=== PATIENT | male | born 1955 | race Caucasian/White ===

== ENCOUNTER → 2017-11-30 06:42 | Outpatient (CLI) | payer OTHER | END | disposition home or self-care (01) | LOC: LAB 06:42 | DX: N40.0 Benign prostatic hyperplasia without lower urinary tract symptoms (principal); R35.0 Frequency of micturition; R30.0 Dysuria ==

== ENCOUNTER 2018-12-20 10:11 | Outpatient (CLI) | payer OTHER | END 2018-12-20 10:14 | disposition home or self-care (01) | LOC: SONOGRAMA 10:11 → MAMO-SONO 10:15 | DX: M65.832 Other synovitis and tenosynovitis, left forearm (principal); M19.042 Primary osteoarthritis, left hand ==

== ENCOUNTER 2019-02-11 07:19 | Outpatient (CLI) | payer OTHER | END 2019-02-11 07:20 | disposition home or self-care (01) | LOC: SONOGRAMA 07:19 → MAMO-SONO 08:45 | DX: R10.84 Generalized abdominal pain (principal) ==

== ENCOUNTER 2019-03-04 10:49 | Outpatient (CLI) | payer OTHER | END 2019-03-04 10:50 | disposition home or self-care (01) | LOC: RAD 10:49 | DX: J18.0 Bronchopneumonia, unspecified organism (principal) ==

== ENCOUNTER → 2019-06-13 | Outpatient (CLI) | payer OTHER | END | disposition home or self-care (01) | LOC: TOM 07:25 | DX: R10.84 Generalized abdominal pain (principal) ==

== ENCOUNTER → 2022-10-25 | Outpatient (CLI) | payer OTHER | END | disposition home or self-care (01) | LOC: NUCLEAR 07:15 | PROVIDERS: ATTEND Internal Medicine | DX: M19.90 Unspecified osteoarthritis, unspecified site (principal); M25.571 Pain in right ankle and joints of right foot; M25.572 Pain in left ankle and joints of left foot; M54.50 Low back pain, unspecified | CPT/HCPCS: 78315; A9503 ==

== ENCOUNTER 2024-04-29 05:20 | Day surgery (SDC) | payer OTHER ==
[2024-04-23 08:35] LABS: HEMATOCRIT 42.9 % (39.0-48.0); HEMOGLOBIN 14.7 g/dL (13-16.00); MEAN CORPUSCULAR HEMOGLOBIN 32.2 pg (27.00-32.0); MEAN CORPUSCULAR HGB CONC 34.3 g/dl (32.0-36.0); PLATELET COUNT 201 K/uL (150-450); RED BLOOD COUNT 4.57 M/uL (4.00-6.00); RED CELL DISTRIBUTION WIDTH 12.9 % (11.5-14.5)
[2024-04-23 08:50] LABS: PH,URINE 5.5 (5.0-8.0); URINE APPEARANCE Clear; URINE BILIRRUBIN Negative (NEGATIVE); URINE BLOOD Negative; URINE COLOR Yellow; URINE GLUCOSE Negative (NEGATIVE); URINE LEUKOCYTE Negative; URINE NITRATE Negative; URINE PROTEIN Negative (NEGATIVE); URINE UROBILINOGEN 0.2 E.U./dl
[2024-04-23 08:58] LABS: INR 0.98; PARTIAL THROMBOPLASTIN TIME 30.8 SECONDS (22.0-34.0); PROTHROMBIN TIME 10.3 SECONDS (9.0-11.5)
[2024-04-23 09:01] LABS: URINE BACTERIA 0 uL (0.0-1933); URINE EPITHELIAL CELLS 0.1 uL (0.0-38.8); URINE RBC 1.3 uL (0.0-20.8); URINE WBC 0.7 uL (0.0-23.2)
[2024-04-23 09:21] LABS: BILIRUBIN TOTAL 0.45 mg/dL (0.3-1.2); CALCIUM 9.6 mg/dL (8.5-10.1); CREATININE SERUM 0.76 mg/dL (0.70-1.30); GFR 102.3; POTASSIUM 4.5 mEq/L (3.5-5.1)
[~2024-04-29 05:20] MED LIST: HYZAAR 50-12.51 EACH PO; JANUMET XR 50-1 EACH PO; MULTIPLE VITAM1 EAC2 PO
[2024-04-29] MEDS ORDERED: CEFAZOLIN SODIUM 1,000 MG VIAL IV ONE (10:30)
[2024-04-29] MEDS ORDERED: FAMOTIDINE/PF 20 MG/10 ML SYRINGE IV SCH (11:30)
[2024-04-29] MEDS ORDERED: CEFAZOLIN SODIUM 1,000 MG VIAL IV SCH (11:30)
== END 2024-04-29 14:05 | disposition home or self-care (01) ==
LOC: CIR.AMB 05:20
PROVIDERS: ATTEND Specialist
DX: K40.90 Unilateral inguinal hernia, without obstruction or gangrene, not specified as recurrent (principal); I10 Essential (primary) hypertension

== ENCOUNTER 2024-07-22 07:46 | Outpatient (CLI) | payer OTHER | END 2024-07-22 07:47 | disposition home or self-care (01) | LOC: NUCLEAR 07:46 | PROVIDERS: ATTEND Internal Medicine | DX: I87.2 Venous insufficiency (chronic) (peripheral) (principal); I73.9 Peripheral vascular disease, unspecified ==

== ENCOUNTER 2024-07-23 07:34 | Outpatient (CLI) | payer OTHER | END 2024-07-23 07:36 | disposition home or self-care (01) | LOC: NUCLEAR 07:34 | PROVIDERS: ATTEND Internal Medicine | DX: I87.2 Venous insufficiency (chronic) (peripheral) (principal) ==